=== PATIENT | female | born 1995 | race Hispanic/Latino ===

== ENCOUNTER 2018-11-13 20:12 | Inpatient (IN) | payer OTHER | END 2018-11-14 19:45 | disposition home or self-care (01) | LOC: C.5S 11-14 00:46 → C.ER 20:12 → C.9E 11-14 00:49 → C.5S 11-14 07:07 ==

== ENCOUNTER 2018-12-21 19:50 | Emergency (ER) | payer OTHER ==
[2018-12-21] MEDS ORDERED: Sodium Chloride 0.9% 1,000 ML IV ONE (20:55)
--- NOTE | 2018-12-21 21:00 | C.PDOC ---
History Of Present Illness Patient is a 23 year old female, with a PMHx of anxiety and depression, who presents to the ED for evaluation of abdominal pain, vomiting, and diarrhea. Patient takers lithium and states that she currently feels like her "lithium lev els are off". She denies any fever, chills, CP, SOB, or other physical complaints. Time Seen by Provider: 12/21/18 20:49 Chief Complaint (Nursing): GI Problem History Per: Patient History/Exam Limitations: no limitations Quality Of Discomfort: "Pain" Associated Symptoms: Vomiting, Diarrhea. denies: Fever, Chills, Chest Pain Recent travel outside of the [place]: No Additional History Per: Patient Past Medical History Reviewed: Historical Data, Nursing Documentation, Vital Signs Vital Signs: Last Vital Signs Temp 99.4 F 12/21/18 20:21 Pulse 114 H 12/21/18 20:21 Resp 22 12/21/18 20:21 BP 121/80 12/21/18 20:21 Pulse Ox 95 12/21/18 20:21 - Medical History PMH: Bipolar Disorder, Personality Disorder, Post Traumatic Stress Disorder Surgical History: No Surg Hx Family History: States: No Known Family Hx - Social History Hx Alcohol Use: No Hx Substance Use: No - Immunization History Hx Tetanus Toxoid Vaccination: Yes Hx Influenza Vaccination: Yes Hx Pneumococcal Vaccination: No Review Of Systems Except As Marked, All Systems Reviewed And Found Negative. Constitutional: Negative for: Fever, Chills Cardiovascular: Negative for: Chest Pain Respiratory: Negative for: Shortness of Breath Gastrointestinal: Positive for: Vomiting, Abdominal Pain, Diarrhea Physical Exam - Physical Exam Appears: Non-toxic, No Acute Distress Skin: Normal Color, Warm, Dry Head: Atraumatic, Normacephalic Oral Mucosa: Moist Neck: Normal ROM, Supple Chest: Symmetrical, No Deformity Cardiovascular: Rhythm Regular, No Murmur Respiratory: Normal Breath Sounds, No Rales, No Rhonchi, No Wheezing Gastrointestinal/Abdominal: Soft, Tenderness (epigastric) Neurological/Psych: Oriented x3 ED Course And Treatment - Laboratory Results Result Diagrams: 12/21/18 21:22 12/21/18 21:22 ECG: Interpreted By Me, Viewed By Me ECG Rhythm: Sinus Rhythm Interpretation Of ECG: No ST/T wave changes Rate From EC O2 Sat by Pulse Oximetry: 95 (on RA) Pulse Ox Interpretation: Normal Medical Decision Making Medical Decision Making: ro gastritisc pancreatisi pud li tox Plan: EKG Labs Urinalysis HCG Urinalysis Zofran 4mg IVP Protonix 40mg IVp IV Fluids labs neg. lithium level low. all symptoms resolved. pt states took po just [employer]. no rlq ttp asking for dc. Disposition - Disposition Referrals: Saritha Lopes [Staff Provider] - Disposition: HOME/ ROUTINE Disposition Time: 22:00 Condition: STABLE Additional Instructions: return to er with worsening symptoms or concerns. please follow up with your doctor/clinic. you may need further testing as an outpatient. Prescriptions: Famotidine [Pepcid] 20 mg PO DAILY #20 tab Instructions: Acute Abdomen (Belly Pain) Forms: [employer] ([place]) - Clinical Impression Clinical Impression: Abdominal pain - Scribe Statement The provider has reviewed the documentation as recorded by the Scribe Naomy Mcneill All medical record entries made by the Scribe were at my direction and personally dictated by me. I have reviewed the chart and agree that the record accurately reflects my personal performance of the history, physical exam, medical decision making, and the department course for this patient. I have also personally directed, reviewed, and agree with the discharge instructions and disposition.
[2018-12-21] MEDS ORDERED: Sodium Chloride 0.9% 1,000 ML ONE (21:08)
[2018-12-21 21:29] LABS: BASO % 0.3 % (0.0-2.0); EOS # 0.1 K/uL (0.0-0.7); EOS % 1.5 % (0.0-4.0); LYMPH # 2.3 K/uL (1.0-4.3); LYMPH % 24.2 % (20.0-40.0); MEAN CELL VOLUME 80.2 fL (81.0-99.0); MEAN CORPUSCULAR HEMOGLOBIN 25.9 pg (27.0-31.0); MEAN CORPUSCULAR HGB CONC 32.3 g/dL (33.0-37.0); MEAN PLATELET VOLUME 7.3 fL (7.2-11.7); MONO # 1.3 K/uL (0.0-0.8); MONO % 13.5 % (0.0-10.0); NEUT # 5.8 K/uL (1.8-7.0); NEUT % 60.5 % (50.0-75.0); RBC 4.65 Mil/uL (3.80-5.20); WHITE BLOOD COUNT 9.6 K/uL (4.8-10.8)
[2018-12-21 21:34] LABS: HCG,QUALITATIVE URINE NEGATIVE (NEGATIVE)
[2018-12-21 21:37] LABS: SQUAMOUS EPITHIAL 20 /hpf (0-5); URINE BACTERIA RARE (<OCC); URINE BILIRUBIN NEGATIVE (NEGATIVE); URINE BLOOD NEGATIVE (NEGATIVE); URINE CLARITY Hazy (Clear); URINE COLOR Yellow (YELLOW); URINE GLUCOSE (UA) NORMAL (Normal); URINE LEUKOCYTE ESTERASE NEG Leu/uL (Negative); URINE PROTEIN NEGATIVE (NEGATIVE); URINE UROBILINOGEN NORMAL mg/dL (0.2-1.0)
[2018-12-21 21:39] LABS: ALB/GLOB RATIO 1.5 (1.0-2.1); ALBUMIN 4.3 g/dL (3.5-5.0); ALT/SGPT 21 U/L (9-52); AST/SGOT 23 U/L (14-36); BLOOD UREA NITROGEN 7 mg/dL (7-17); GFR NON-AFRICAN AMERICAN > 60; LIPASE 62 U/L (23-300)
[2018-12-21 21:48] LABS: INR 1.2; PROTHROMBIN TIME 12.9 SECONDS (9.7-12.2)
[2018-12-21 22:13] VITALS: BP 120/65; PULSE 84; RESP 17; TEMP 98.6
[2018-12-21 22:50] VITALS: O2SAT 95
--- NOTE | 2018-12-23 21:16 | CARD ---
APPROVED REPORT Date of service: 12/21/2018 EKG Measurement Heart [id number] <Conclusion> Normal sinus rhythm Normal ECG
== END 2018-12-21 22:23 | disposition home or self-care (01) ==
LOC: C.ER 19:50
DX: R10.13 Epigastric pain (principal)
CPT/HCPCS: 80053; 80178; 81001; 83690; 84702; 84703; 85025; 85610; 85730; 93005; 96374; 96375; 99284; C9113; J2405; J7030

== ENCOUNTER 2018-12-30 07:35 | Emergency (ER) | payer OTHER ==
[2018-12-30] MEDS ORDERED: Alum-Mag Hydrox-Simethicone Susp (30 mL) PO STA (08:06)
[2018-12-30] MEDS ORDERED: Sodium Chloride 0.9% 1,000 ML IV ONE (08:09)
[2018-12-30] MEDS ORDERED: Alum-Mag Hydrox-Simethicone Susp (30 mL) ONE (08:14)
[2018-12-30 08:36] LABS: BASO # 0.1 K/uL (0.0-0.2); BASO % 0.8 % (0.0-2.0); EOS % 0.2 % (0.0-4.0); HEMOGLOBIN 11.9 g/dL (11.0-16.0); LYMPH # 4.8 K/uL (1.0-4.3); LYMPH % 57.4 % (20.0-40.0); MEAN CELL VOLUME 79.1 fL (81.0-99.0); MEAN CORPUSCULAR HEMOGLOBIN 25.3 pg (27.0-31.0); MONO # 0.9 K/uL (0.0-0.8); MONO % 11.1 % (0.0-10.0); NEUT # 2.5 K/uL (1.8-7.0); NEUT % 30.5 % (50.0-75.0); NRBC % 0.1 % (0.0-2.0); RED CELL DISTRIBUTION WIDTH 16.1 % (11.5-14.5); WHITE BLOOD COUNT 8.4 K/uL (4.8-10.8)
[2018-12-30 08:37] LABS: PLATELET COUNT 206 K/uL (130-400)
[2018-12-30] MEDS ORDERED: Sodium Chloride 0.9% 1,000 ML ONE (08:37)
[2018-12-30 08:41] LABS: SQUAMOUS EPITHIAL 139 /hpf (0-5); URINE BACTERIA FEW (<OCC); URINE BILIRUBIN NEGATIVE (NEGATIVE); URINE BLOOD 3+ (NEGATIVE); URINE CLARITY Hazy (Clear); URINE COLOR Red (YELLOW); URINE GLUCOSE (UA) NORMAL (Normal); URINE LEUKOCYTE ESTERASE TRACE Leu/uL (Negative); URINE PROTEIN 2+ mg/dL (NEGATIVE); URINE UROBILINOGEN NORMAL mg/dL (0.2-1.0)
[2018-12-30 08:42] LABS: HCG,QUALITATIVE URINE NEGATIVE (NEGATIVE)
--- NOTE | 2018-12-30 08:47 | C.PDOC ---
History Of Present Illness 23 y/o female comes in complaining of bloody vomiting for the past 2 days. Patient also states she has multiple piercings on her face with blood coming out of the pierced areas. Patient has history of psychiatric illnesses and reports she is taking multiple psychiatric medications. Patient was seen here last week and had bloodwork done, but was concerned that there was no lithium level shown. Patient also complains of cough. Otherwise she denies any fever, chills, nausea, dizziness, or other symptoms. Time Seen by Provider: 12/30/18 07:43 Chief Complaint (Nursing): GI Problem History Per: Patient History/Exam Limitations: no limitations Onset/Duration Of Symptoms: Days Current Symptoms Are (Timing): Still Present Past Medical History Reviewed: Historical Data, Nursing Documentation, Vital Signs Vital Signs: Last Vital Signs Temp 100.4 F H 12/30/18 07:38 Pulse 121 H 12/30/18 07:38 Resp 18 12/30/18 07:38 BP 138/83 12/30/18 07:38 Pulse Ox 97 12/30/18 07:38 - Medical History PMH: Bipolar Disorder, Personality Disorder, Post Traumatic Stress Disorder Family History: States: No Known Family Hx - Social History Hx Alcohol Use: No Hx Substance Use: No - Immunization History Hx Tetanus Toxoid Vaccination: Yes Hx Influenza Vaccination: Yes Hx Pneumococcal Vaccination: No Review Of Systems Except As Marked, All Systems Reviewed And Found Negative. Constitutional: Negative for: Fever, Chills Gastrointestinal: Positive for: Hematemesis. Negative for: Nausea, Abdominal Pain, Diarrhea Neurological: Negative for: Dizziness Physical Exam - Physical Exam Appears: Non-toxic, No Acute Distress Skin: Warm, Dry Head: Atraumatic, Normacephalic Eye(s): bilateral: Normal Inspection Oral Mucosa: Moist Neck: Supple Cardiovascular: Rhythm Regular, No Murmur Respiratory: Normal Breath Sounds, No Rales, No Rhonchi, No Wheezing Gastrointestinal/Abdominal: Soft, No Tenderness Extremity: Bilateral: Atraumatic, Normal ROM Neurological/Psych: Oriented x3, Normal Speech, Normal Cognition ED Course And Treatment - Laboratory Results Result Diagrams: 12/30/18 08:20 12/30/18 08:20 Lab Results: Urine Color Red (YELLOW) 12/30/18 08:20 Urine Clarity Hazy (Clear) 12/30/18 08:20 Urine pH 6.0 (5.0-8.0) 12/30/18 08:20 Ur Specific [place] 1.015 (1.003-1.030) 12/30/18 08:20 Urine Protein 2+ mg/dL (NEGATIVE) H 12/30/18 08:20 Urine Glucose (UA) Normal mg/dL (Normal) 12/30/18 08:20 Urine Ketones Negative mg/dL (NEGATIVE) 12/30/18 08:20 Urine Blood 3+ (NEGATIVE) H 12/30/18 08:20 Urine Nitrate Negative (NEGATIVE) 12/30/18 08:20 Urine Bilirubin Negative (NEGATIVE) 12/30/18 08:20 Urine Urobilinogen Normal mg/dL (0.2-1.0) 12/30/18 08:20 Ur Leukocyte Esterase Trace [place]/uL (Negative) 12/30/18 08:20 Urine WBC (Auto) 23 /hpf (0-5) H 12/30/18 08:20 Urine RBC (Auto) 24 /hpf (0-3) H 12/30/18 08:20 Ur Squamous Epith Cells 139 /hpf (0-5) H 12/30/18 08:20 Urine Bacteria Few (<OCC) H 12/30/18 08:20 Urine HCG, Qual Negative (NEGATIVE) 12/30/18 08:20 Urine HCG, Qual Negative (NEGATIVE) 12/30/18 08:20 O2 Sat by Pulse Oximetry: 97 (RA) Pulse Ox Interpretation: Normal - Other Rad CXR X-Ray: Read By Radiologist Interpretation: FINDINGS: LUNGS: No active pulmonary disease. PLEURA: No significant pleural effusion identified. No pneumothorax apparent. CARDIOVASCULAR: No aortic atherosclerotic calcification present. Normal cardiac size. No pulmonary vascular congestion. OSSEOUS STRUCTURES: No signifi cant abnormalities. VISUALIZED UPPER ABDOMEN: Normal. OTHER FINDINGS: None. IMPRESSION: No active disease. Medical Decision Making Medical Decision Making: Plan: --Labs --Chest XR --UA --Urine preg --Maalox 30 ml PO --Pepcid 20 mg IVP --IV fluids 1L Disposition - Disposition Referrals: [facility] [Outside] [facility] [Outside] [facility] [Outside] Disposition: HOME/ ROUTINE Disposition Time: 11:00 Condition: STABLE Additional Instructions: Follow up with clinic for further evaluation Return to ED if any increase symptoms Instructions: Viral Upper Respiratory Infection, Adult (DC) Forms: [employer] ([place]) - Clinical Impression Clinical Impression: URI with cough and congestion - PA / INORGANIC CHEMICAL TECHNICIAN / Resident Statement MD/DO has reviewed & agrees with the documentation as recorded. - Scribe Statement The provider has reviewed the documentation as recorded by the Scribe Abena Salvador All medical record entries made by the Qamaribsophy were at my direction and personally dictated by me. I have reviewed the chart and agree that the record accurately reflects my personal performance of the history, physical exam, medical decision making, and the department course for this patient. I have also personally directed, reviewed, and agree with the discharge instructions and disposition.
[2018-12-30 08:54] LABS: ALB/GLOB RATIO 1.4 (1.0-2.1); ALT/SGPT 47 U/L (9-52); AST/SGOT 61 U/L (14-36); BLOOD UREA NITROGEN 4 mg/dL (7-17); CALCIUM 8.8 mg/dl (8.6-10.4); GFR NON-AFRICAN AMERICAN > 60; LIPASE 48 U/L (23-300)
--- NOTE | 2018-12-30 09:49 | RAD ---
Date of service: 12/30/2018 HISTORY: SOB COMPARISON: No prior. TECHNIQUE: Chest PA and lateral views FINDINGS: LUNGS: No active pulmonary disease. PLEURA: No significant pleural effusion identified. No pneumothorax apparent. CARDIOVASCULAR: No aortic atherosclerotic calcification present. Normal cardiac size. No pulmonary vascular congestion. OSSEOUS STRUCTURES: No significant abnormalities. VISUALIZED UPPER ABDOMEN: Normal. OTHER FINDINGS: None. IMPRESSION: No active disease.
[2018-12-30 10:01] VITALS: BP 105/68; PULSE 99; TEMP 100.7
[2018-12-30 10:22] VITALS: RESP 18
[2018-12-30 12:07] LABS: BANDS 6 % (0-2); LYMPHOCYTE 24 % (20-40); MONOCYTE 6 % (0-10); MYELOCYTE 1 % (0-0); NEUTROPHIL 31 % (50-75); PLATELET ESTIMATE NORMAL (NORMAL); REACTIVE LYMPHOCYTES 32 % (0-0); TOTAL CELLS COUNTED 100
[2018-12-30 12:09] LABS: ANISOCYTOSIS SLIGHT; POIKILOCYTOSIS SLIGHT
[2018-12-30 17:36] VITALS: O2SAT 97
== END 2018-12-30 10:23 | disposition home or self-care (01) ==
LOC: C.ER 07:35
DX: J06.9 Acute upper respiratory infection, unspecified (principal); R05 Cough
CPT/HCPCS: 71046; 80053; 81001; 83690; 84703; 85025; 96361; 96374; 99284; J7030

== ENCOUNTER 2019-02-16 12:10 | Emergency (ER) | payer OTHER ==
[2019-02-16 12:36] VITALS: RESP 18; TEMP 99.2; BMI 38.0
--- NOTE | 2019-02-16 13:36 | C.PDOC ---
History Of Present Illness 23 y/oi female with hx mastoiditis in Oct 2018, and bipolar disorder c/o one week of bilateral ear fullness and pain, with no mastoid tenderness no drainage from ears. +sore throat, +nasal congestion. denies ah, si, hi. no fever or chills. Time Seen by Provider: 02/16/19 12:34 Chief Complaint (Nursing): ENT Problem History Per: Patient History/Exam Limitations: None Onset/Duration Of Symptoms: Days (7) Current Symptoms Are (Timing): Still Present Quality (Ear): denies: Pain W/Touch, Redness, Discharge Quality (Mouth/Throat): Tenderness Symptoms Have Been: Continuous Past Medical History Reviewed: Historical Data, Nursing Documentation, Vital Signs Vital Signs: Last Vital Signs Temp 99.2 F 02/16/19 12:26 Pulse 99 H 02/16/19 12:26 Resp 18 02/16/19 12:26 BP 118/77 02/16/19 12:26 Pulse Ox 99 02/16/19 12:26 Primary Care Provider: FAMILY PROVIDER,NO - Medical History PMH: Bipolar Disorder, Personality Disorder, Post Traumatic Stress Disorder Family History: States: Unknown Family Hx - Social History Hx Tobacco Use: No Hx Alcohol Use: No Hx Substance Use: No - Immunization History Hx Tetanus Toxoid Vaccination: No Hx Influenza Vaccination: No Hx Pneumococcal Vaccination: No Review Of Systems Constitutional: Negative for: Fever, Chills ENT: Positive for: Ear Pain, Nose Congestion, Throat Pain. Negative for: Ear Discharge, Throat Swelling Cardiovascular: Negative for: Chest Pain Respiratory: Negative for: Cough Psych: Negative for: Suicidal ideation Physical Exam - Physical Exam Appears: Non-toxic, No Acute Distress Skin: Warm, Dry Head: Atraumatic, Normacephalic Eye(s): bilateral: Normal Inspection Ear(s): Bilateral: Normal, Other (no tragus or mastoid tenderness. bi;ateral canals clear. no erythema or debris. ) Nose: Other (mild congestion) Oral Mucosa: Moist Tongue: Normal Appearing Throat: Erythema, No Exudate Lymphatic: Adenopathy (bilateral tender submandiblular nodes) Cardiovascular: Rhythm Regular Respiratory: No Decreased Breath Sounds, No Rales, No Rhonchi ED Course And Treatment O2 Sat by Pulse Oximetry: 99 Medical Decision Making Medical Decision Making: pt with hx mastoiditis few months ago; now with ear and throat pain along with nasal congestion. no signs of ear infection; tm b/l normal appearing, canals ppin with no debris, no drainage non tender b/l mastiod. throat erythematous with tender nodes; will check for strep. Disposition Counseled Patient/Family Regarding: Studies Performed, Diagnosis, Need For Followup, Rx Given - Disposition Referrals: Jayson Laboy MD [Staff Provider] - Disposition: HOME/ ROUTINE Disposition Time: 14:42 Condition: GOOD Additional Instructions: Take antibiotics as prescribed. Tylenol for pain. Gargle with warm salty water several times a day. Use neti pot for nasal congestion. Prescriptions: Amoxicillin [Amoxil 500 mg Cap] 500 mg PO BID #20 cap Instructions: Sore Throat, Adult (DC) Forms: [employer] ([place]), Emergency Room Disch/Depart - Clinical Impression Clinical Impression: Pharyngitis
[2019-02-16 14:50] VITALS: BP 121/74; PULSE 89
[2019-02-16 21:54] VITALS: O2SAT 99
== END 2019-02-16 14:50 | disposition home or self-care (01) ==
LOC: C.ER 12:10
DX: J02.9 Acute pharyngitis, unspecified (principal)